=== PATIENT | female | born 1960 | race Caucasian/White ===

== ENCOUNTER 2017-03-25 06:53 | Outpatient (CLI) | payer MEDICAID ==
[~2017-03-25] VITALS: Ht 160 cm; Wt 72.7 kg
[2017-03-25] VITALS (9 sets, daily range): BP systolic 144–179; BP diastolic 75–96; Ht 160 cm; Wt 72.7 kg
--- NOTE | ~2017-03-25 | HEMODYNAMI ---
PATIENT:YEFRI ALARCON MEDICAL RECORD: [id number] : 58 LOCATION:D.OPS ADMISSION DATE: 03/25/17 Generatedon:03/25/201711:47 Patient name: YEFRI ALARCON Patient #: [id number] SSN: : 1960 Date of study: 03/25/2017 Page: Of Hemodynamic Procedure Report Patient Data Patient Demographics Procedure consent was obtained First Name: YEFRI Gender: Female Last Name: DORIAN : 1960 Patient #: [id number] Age: 56 year(s) Race: Unknown Additional ID: [id number] Contact details Address: [address] [place] [address] State: [place] City: [place] Zip code: [address] Admission Admission Data Admission Date: 03/25/2017 Admission Time: 6:53 Procedure Procedure Types Cath Procedure Peripheral Cath Diagnostic Procedure Vertebroplasty Sacralplasty Procedure Description Procedure Date Procedure Date: 03/25/2017 Procedure Start Time: 10:32 Procedure Staff Name Function Kolby Esparza MD Performing Physician Leela Liang RT Scrub Michaela Gupta RN Nurse Brady Muller RT Monitor Procedure Data Cath Procedure Fluoroscopy Diagnostic fluoroscopy Total fluoroscopy Time: 9.2 time: 9.2 min min Diagnostic fluoroscopy Total fluoroscopy dose: 422 dose: 422 mGy mGy Hemodynamics Rest Heart Rate: 68 (bpm) Snapshots Pre Cath Intra NCS Post Cath Vital Signs Time Heart Resp SPO2 NIBP (mmHg) Rhythm Pain Sedation Rate (ipm) (%) Status Level (bpm) 10:04:52 68 15 145/93(124) NSR 0 (11) 10(A) , No pain 10:09:51 67 19 99 Measuring NSR 0 (11) 10(A) , No pain 10:09:53 68 20 99 166/92(118) NSR 0 (11) 10(A) , No pain 10:14:11 68 9 98 166/96(148) NSR 0 (11) 10(A) , No pain 10:18:31 62 10 97 101/64(84) NSR 0 (11) 10(A) , No pain 10:22:37 61 9 98 111/70(94) NSR 0 (11) 10(A) , No pain 10:26:49 62 9 98 110/64(86) NSR 0 (11) 10(A) , No pain 10:30:59 61 9 98 101/65(78) NSR 0 (11) 10(A) , No pain 10:35:05 62 9 98 99/65(81) NSR 0 (11) 10(A) , No pain 10:39:10 61 9 98 100/66(74) NSR 0 (11) 10(A) , No pain 10:43:18 61 8 98 97/59(78) NSR 0 (11) 10(A) , No pain 10:47:24 60 8 98 96/64(80) NSR 0 (11) 10(A) , No pain 10:51:28 59 9 98 100/67(78) NSR 0 (11) 10(A) , No pain 10:55:33 59 9 98 95/65(81) NSR 0 (11) 10(A) , No pain 10:59:39 59 9 98 92/63(74) NSR 0 (11) 10(A) , No pain 11:03:43 58 8 98 94/61(75) NSR 0 (11) 10(A) , No pain 11:07:51 55 7 98 85/59(67) NSR 0 (11) 10(A) , No pain 11:11:55 56 6 98 82/57(69) NSR 0 (11) 10(A) , No pain 11:15:56 55 7 98 85/58(74) NSR 0 (11) 10(A) , No pain 11:19:58 55 7 98 88/62(75) NSR 0 (11) 10(A) , No pain 11:24:02 53 16 98 85/62(72) NSR 0 (11) 10(A) , No pain 11:28:01 55 8 98 90/66(78) NSR 0 (11) 10(A) , No pain 11:32:03 56 13 98 90/64(77) NSR 0 (11) 10(A) , No pain 11:36:03 59 11 98 107/70(92) NSR 0 (11) 10(A) , No pain 11:40:08 59 11 98 115/78(104) NSR 0 (11) 10(A) , No pain 11:44:14 60 13 98 126/84(109) NSR 0 (11) 10(A) , No pain Procedure Log Time Note 9:36:30 Brady Yohana RT (R) (CV) sent for patient. Start room use. 9:36:41 Time tracking: Regular hours 9:36:48 Plan of Care:Hemodynamics will remain stable., Cardiac rhythm will remain stable., Comfort level will be maintained., Respiratory function will remain adequate., Patient/ family verbilizes understanding of procedure., Procedure tolerated without complication., Recovers from procedure without complications.. 9:37:07 Patient received from Outpatients to [facility] 1 Alert and oriented. Tansferred to table in Prone position. 9:37:17 Correct patient and procedure confirmed by team. 9:37:19 Signed procedure consent form obtained from patient. 9:37:20 ECG and BP/O2 sat monitors applied to patient. 9:37:22 Full Disclosure recording started 9:37:23 - 9:37:34 H&P Date Dictated: 03/25/2017 H&P Addendum completed by physician on day of procedure. (MUST COMPLETE FOR ALL OUTPATIENTS). 9:37:35 Pre-procedure instructions explained to patient. 9:37:37 Pre-op teaching completed and patient verbalized understanding. 9:50:24 LAMIN FROM ANESTHESI A HERE FOR TIJULITO 9:50:37 - 9:50:53 - 9:51:12 SEE ANESTHESIA NOTE FOR PRE PROCEDURE TIVA 9:53:23 Use device set IR Diagnostic 9:53:24 Bag Decanter opened to sterile field. 9:53:25 Sterile Angiographic Pack opened to sterile field. 10:03:50 Vital chart was started 10:03:51 Baseline sample Acquired. 10:03:56 Rhythm: sinus rhythm 10:28:00 Physician arrived 10:28:00 --------ALL STOP TIME OUT------ 10:28:01 Final Timeout: patient, procedure, and site verified with staff and physician. All members of the team are in agreement. 10:28:06 Lumbar site verified by team. 10:28:19 Physical assessment completed. ASA score P 3 - A patient with severe systemic disease as per Kolby Esparza MD. 10:28:36 Sedation plan: TIVA Propofol 10:30:03 Procedure started. 10:32:14 Local anesthetic to Lumbar area with Lidocaine 1% by Kolby Esparza MD.INITIAL ACCESS ONLY 10:33:03 Avamax CEMENT BONE VERTEBROPLASTY kit opened to sterile field. 10:33:08 Avamax 13 G VERTEBROPLASTY Needle opened to sterile field. 10:33:08 Avamax 13 G VERTEBROPLASTY Needle opened to sterile field. 10:33:10 Avamax 13 G VERTEBROPLASTY Needle opened to sterile field. 10:33:11 Avamax 13 G VERTEBROPLASTY Needle opened to sterile field. 11:24:28 Procedure ended.(Physican Out) 11:26:05 Fluoroscopy time 09.20 minutes. 11:26:18 Fluoroscopy dose: 422 mGy 11:26:18 Flurop Dose total: 422 11:26:36 Sharps counted by scrub and verified by R.N. 11:26:38 Insertion/operative site no bleeding no hematoma. 11:26:49 Post Lumbar area:stable 11:26:59 Post-procedure physical assessment completed. ASA score P 3 - A patient with severe systemic disease as per Kolby Esparza MD. 11:27:00 Procedure and supply charges have been captured, reviewed, submitted an d are correct. 11:46:02 SEE ANESTHESIA NOTE FOR POST PROCEDURE TIVA 11:46:07 Report given to Med/Surg. 11:46:10 Patient transfered to Med/Surg with Bed. 11:47:48 Vital chart was stopped Device Usage Item Name Manufacture Quantity Catalog Hospital Part Current Minim al Lot# / Number Charge Number Stock Stock Serial# Code Bag Decanter Microtek 1 [id number] 5 [employer] Sterile Cardinal 1 [id number] 5 Angiographic Health Pack Avamax CEMENT CareFusion 1 [id number] 5 [id number] BONE VERTEBROPLASTY kit Avamax 13 G [employer]Fusion 4 [id number] 5 VERTEBROPLASTY Needle Signature Audit [place] Stage Time Signature Unsigned Intra-Procedure 03/25/2017 Brady 11:47:45 AM Yohana RT (R) (CV) Signatures Monitor : Brady Signature : Yohana RT Date : Time : [address] [address]
[2017-03-25 07:23] LABS: BASOPHILS 0 % (0-2); EOSINOPHILS 0.4 % (0-7); HEMATOCRIT 47.1 % (36.0-48.0); HEMOGLOBIN 16.6 g/dL (12-16); IMMATURE GRANULOCYTES 0.7 % (0-5); LYMPHOCYTES 19.1 % (15-50); MCH 31.9 pg (26.0-34.0); MCHC 35.2 g/dL (31.0-37.0); MCV 90.6 fL (80.0-100.0); MEAN PLATELET VOLUME 9.7 fL (7.4-10.4); MONOCYTES 6.9 % (2-11); NEUTROPHILS 72.9 % (40-80); PLATELET COUNT 215 10x3/uL (130-400); WBC 9.4 10x3/uL (4.8-10.8)
[2017-03-25 07:40] LABS: APTT 22.4 SECONDS (22.8-39.4); CALC OSMOLALITY 275 mosm/kg (275-300); CALCIUM 11.2 mg/dL (8.5-10.1); CARBON DIOXIDE 29.5 mmol/L (21.0-32.0); CHLORIDE - SERUM 99 mmol/L (98-107); CREATININE - SERUM 0.5 mg/dL (0.6-1.3); GLUCOSE 147 mg/dL (74-106); INR 0.91 (0.85-1.17); POTASSIUM - SERUM 3.4 mmol/L (3.5-5.1); SODIUM 137 mmol/L (136-145); UREA NITROGEN 9 mg/dL (7-18); eGFR NON AFRICAN AMERICAN > 90 mL/min (90-120)
[2017-03-25] MEDS ORDERED: GLUCOPHAGE500 MG PO (08:37)
[2017-03-25] MEDS ORDERED: METOPROLOL TAR100 M1 PO (08:38)
[2017-03-25] MEDS ORDERED: DYAZIDE 37.5/251 CAP PO (08:38)
[2017-03-25] MEDS ORDERED: XANAX1 MG PO (08:38)
[2017-03-25] MEDS ORDERED: PROVENTIL HFA6.7 GM INH (08:39)
[2017-03-25] MEDS ORDERED: ZANAFLEX4 MG PO (08:40)
[2017-03-25] MEDS ORDERED: ROXICODONE15 MG PO (08:41)
[2017-03-25] MEDS ORDERED: HYDROCODONE-APA1 TAB PO (08:41)
[2017-03-25] MEDS ORDERED: PROMETHAZINE W473 M1 PO (08:42)
--- NOTE | 2017-03-25 12:15 | NUR ---
PT TO ROOM 2208 FROM IR VIA BED.BRUISING NOTED TO ENTIRE BODY.3 SKIN TEARS TO LEFT FOREARM,1 OLD AND 2 NEW ONES WITH BLOOD COMING FROM THEM.ORIENTATION TO ROOM WITH PT.CALL LIGHT IN REACH.UNABLE TO TURN PT AT THIS TIME.
--- NOTE | 2017-03-25 14:34 | NUR ---
CALLED TO PATIENT ROOM. BLOOD PRESSURE CUFF UNWRAPPED FROM RIGHT FOREARM AND 2 SKIN CUTS NOTED. NON STICK DRESSING X 2 WITH VALERIE WRAPPED TO RIGHT FOREARM. ARMBAND NOTED TO LEFT WRIST WITH CUT NOTED TO SKIN UNDER ARMABAND. NON STICK DRESSING X 1 WRAPPED WITH CLING TO LEFT WRIST.
--- NOTE | 2017-03-25 14:47 | NUR ---
PT HAS VOIDED 500CC OF URINE ON BEDPAN.SMALL AMOUNT OF BLOODY DRAINAGE NOTED TO DRESSING ON BACK,SKIN IS WITHOUT BREAKDOWN ON POSTERIOR BODY,SOME BRUISING NOTED.CALL LIGHT IN REACH
--- NOTE | 2017-03-25 19:35 | NUR ---
PULLED UP IN BED, DENIES OTHER NEEDS, BED LOWEST POSITION, CALL LIGHT IN REACH, WILL CONTINUE TO MONITOR
--- NOTE | 2017-03-25 22:30 | NUR ---
ASSESSED, PT IS AWAKE RESTING WELL WITH FAMILY AT THE BEDSIDE. THE BED IS LOW, RAILS UP X'S 2 WITH THE CALL LIGHT AT HAND.
[2017-03-26] VITALS: BP 132/90
--- NOTE | 2017-03-26 03:45 | NUR ---
SLEEPING, BREATHING EVEN UNLABORED, WILL CONTINUE TO MONITOR
[2017-03-26 04:00] VITALS: BP 175/99
--- NOTE | 2017-03-26 08:00 | NUR ---
ASSESSMENT COMPLETE. SL TO L HAND. FACE REDDISH-PURPLE COLOR. SCATTERED BRUISING OVER BODY. SKIN THIN AND TEARS EASILY. DRESSING INTACT TO L ARM. DRESSING TO LOWER BACK INTACT.
--- NOTE | 2017-03-26 12:00 | NUR ---
DRESSINGS TO BILAT ARMS CHANGED. SKIN TEARS X 3 TO LEFT ARM AND SKIN TEARS X 2 TO RIGHT ARMS. TEARS COVERED WTIH ADAPTIC AND COVERED WITH 4X4'S AND VALERIE. DISCHARGE TEACHING GIVEN TO PATIENT AND . SCRIPT FOR TORADOL GIVEN TO PATIENT BY RADIOLOGIST. SL REMOVED. CATHETER TIP INTACT.
--- NOTE | 2017-03-26 12:40 | NUR ---
DRESSSING TO LOWER BACK REMOVED. SMALL AMOUNT OF BROWN DRAINAGE NOTED TO DRESSING. SMALL INCISIONS X 4 NOTED TO LOWER BACK. BANDAIDS X 4 APPLIED TO LOWER BACK.
--- NOTE | 2017-03-26 12:45 | NUR ---
DC'D HOME WITH . ESCORTED TO VEHICLE VIA WC WITH BELONGINGS.
== END 2017-03-26 12:45 | disposition home or self-care (01) ==
LOC: D.OPS 06:53 → D.MS 06:53 → D.RAD 08:00 → D.OPS 08:00 → D.MS 12:38 → D.OPS 03-26 12:45
PROVIDERS: Specialist
DX: M80.88XA Other osteoporosis with current pathological fracture, vertebra(e), initial encounter for fracture (principal); Z01.812 Encounter for preprocedural laboratory examination